=== PATIENT | male | born 1955 | race Caucasian/White ===

== ENCOUNTER 2017-03-31 10:09 | Day surgery (SDC) | payer OTHER ==
[~2017-03-31] VITALS: Ht 165.1 cm; Wt 85.3 kg
[2017-03-31] MEDS ORDERED: MECL-272 PO (10:46)
[2017-03-31] MEDS ORDERED: LIDOCAINE 2% 100 MG/5 ML UJET TP ONE (10:56)
== END 2017-03-31 13:14 | disposition home or self-care (01) ==
LOC: MDS 10:09 → MMU 10:09 → MDS 13:14
PROVIDERS: ATTEND Internal Medicine Gastroenterology
DX: Z12.11 Encounter for screening for malignant neoplasm of colon (principal); D12.3 Benign neoplasm of transverse colon; K62.1 Rectal polyp; D12.5 Benign neoplasm of sigmoid colon; K63.5 Polyp of colon; K64.8 Other hemorrhoids; E66.9 Obesity, unspecified; F17.210 Nicotine dependence, cigarettes, uncomplicated; Z68.32 Body mass index [BMI] 32.0-32.9, adult; Z79.899 Other long term (current) drug therapy; Z98.890 Other specified postprocedural states